=== PATIENT | female | born 1980 | race Caucasian/White ===

== ENCOUNTER → 2017-01-07 | Outpatient (CLI) | payer OTHER ==
[~2017-01-07] MED LIST: MTR600X PO; OXYC5TAB PO; PRENTAB26 PO; VITAMIN D PO
--- NOTE | 2017-01-07 11:14 | DIAGNOSTIC IMAGING REPORT ---
SI JOINTS 3 OR MORE VIEWS CLINICAL HISTORY: Right SI joint pain COMPARISON STUDY: No previous studies for comparison. FINDINGS: No fractures are visualized. There is no evidence of SI joint fusion. There are no erosive changes. IMPRESSION: Unremarkable conventional radiographic evaluation of the sacroiliac joints Electronically signed by: Shravan Hinds M.D. 01/07/2017 11:13 AM Dictated Date/Time: 01/07/2017 11:12 AM
== END | disposition home or self-care (01) ==
LOC: C.RAD 10:26
PROVIDERS: ATTEND Nurse Practitioner Family
DX: M53.3 Sacrococcygeal disorders, not elsewhere classified (principal)

== ENCOUNTER → 2017-01-18 | Outpatient (CLI) | payer OTHER ==
--- NOTE | 2017-01-18 08:30 | DIAGNOSTIC IMAGING REPORT ---
SI JOINTS 3 OR MORE VIEWS CLINICAL HISTORY: Abnormal x-ray. Follow-up examination. COMPARISON STUDY: 01/07/2017. FINDINGS: No fractures are visualized. There is no evidence of SI joint fusion. There are no erosive changes. IMPRESSION: Unremarkable conventional radiographic evaluation of the sacroiliac joints. Electronically signed by: Shravan Hinds M.D. 01/18/2017 8:29 AM Dictated Date/Time: 01/18/2017 8:27 AM
== END | disposition home or self-care (01) ==
LOC: C.RAD 07:09
PROVIDERS: ATTEND Nurse Practitioner Family
DX: M53.3 Sacrococcygeal disorders, not elsewhere classified (principal); R93.7 Abnormal findings on diagnostic imaging of other parts of musculoskeletal system

== ENCOUNTER → 2017-04-07 | Outpatient (CLI) | payer OTHER | END | disposition home or self-care (01) | LOC: C.PAPS 12:24 | PROVIDERS: ATTEND Obstetrics & Gynecology | DX: Z12.4 Encounter for screening for malignant neoplasm of cervix (principal); Z80.3 Family history of malignant neoplasm of breast ==

== ENCOUNTER → 2017-05-05 | Outpatient (CLI) | payer OTHER ==
--- NOTE | 2017-05-05 08:25 | DIAGNOSTIC IMAGING REPORT ---
SOFT TISS HEAD/NECK-THYROID CLINICAL HISTORY: 36 years-old Female presenting with THYROID NODULE. TECHNIQUE: Real-time grayscale and color and spectral Doppler ultrasound imaging of the thyroid and base of the neck was performed. COMPARISON: 11/11/2015. FINDINGS: Right lobe: Heterogeneous echotexture. The right lobe of the thyroid measures 1.9 x 4.9 x 1.6 cm. 1 nodule noted: -At the upper pole, there is a 0.5 x 0.4 x 0.4 hypoechoic nodule with peripheral coarse calcification and ill-defined margins. (High suspicion) Left lobe: Heterogeneous echotexture. The left lobe of the thyroid measures 2.1 x 5.7 x 1.5 cm. 2 nodules noted: -Lower pole hypoechoic 0.6 x 0.6 x 0.7 cm nodule with fairly well-defined margins and peripheral coarse calcification. (Intermediate suspicion) -Posterior hypoechoic to anechoic 0.6 x 0.5 x 0.4 cm nodule. This nodule is likely partially cystic, although margins are somewhat ill-defined. (High suspicion) Isthmus: The isthmus measures 3 in thickness. No nodules. IMPRESSION: Multinodular thyroid. No biopsy of the 3 nodules is recommended at this time given their subcentimeter size preliminary thyroid association recommendations. Follow-up imaging is recommended to screen for growth. Electronically signed by: Juan Saeed M.D. 05/05/2017 8:24 AM Dictated Date/Time: 05/05/2017 8:15 AM
[2017-05-05 11:26] LABS: THYROID STIMULATING HORMONE 1.27 uIu/ml (0.300-4.500)
== END | disposition home or self-care (01) ==
LOC: C.ULTRBC 07:48
PROVIDERS: ATTEND Nurse Practitioner Family
DX: E04.1 Nontoxic single thyroid nodule (principal)

== ENCOUNTER → 2017-06-15 | Outpatient (CLI) | payer OTHER ==
[2017-06-15 11:07] LABS: BASO % 0.7 %; BASO ABS # 0.04 K/uL (0-0.2); COMPLETE YES; EOS % 0.9 %; HEMATOCRIT 41.3 % (37-47); IG% 0.2 %; LYMPH % 27.1 %; LYMPH ABS # 1.47 K/uL (1.2-3.4); MEAN CELL VOLUME 86.6 fL (80-100); MEAN CORPUSCULAR HEMOGLOBIN 28.9 pg (25-34); MEAN CORPUSCULAR HGB CONC 33.4 g/dl (32-36); MONO % 9.6 %; NEUT % 61.5 %; PLATELET COUNT 334 K/uL (130-400); RED BLOOD COUNT 4.77 M/uL (4.2-5.4); WHITE BLOOD COUNT 5.43 K/uL (4.8-10.8)
[2017-06-15 11:40] LABS: ALT/SGPT 36 U/L (12-78); AST/SGOT 19 U/L (15-37); BLOOD UREA NITROGEN 10 mg/dl (7-18); BUN/CREATININE RATIO 11.3 (10-20); CALCIUM 9.4 mg/dl (8.5-10.1); CARBON DIOXIDE 26 mmol/L (21-32); CHLORIDE 106 mmol/L (98-107); CREATININE 0.86 mg/dl (0.60-1.20); GLUCOSE 92 mg/dl (70-99); POTASSIUM 3.8 mmol/L (3.5-5.1); SODIUM 139 mmol/L (136-145)
[2017-06-15 11:43] LABS: ALB/GLOB RATIO 1.2 (0.9-2); ALKALINE PHOSPHATASE 120 U/L (45-117)
== END | disposition home or self-care (01) ==
LOC: C.LABBC 09:10
PROVIDERS: ATTEND Nurse Practitioner Family
DX: F32.2 Major depressive disorder, single episode, severe without psychotic features (principal)

== ENCOUNTER → 2018-05-26 | Outpatient (CLI) | payer OTHER | END | disposition home or self-care (01) | LOC: C.PAPS 10:48 | PROVIDERS: ATTEND Obstetrics & Gynecology | DX: Z12.4 Encounter for screening for malignant neoplasm of cervix (principal) ==

== ENCOUNTER → 2018-05-30 | Outpatient (CLI) | payer OTHER ==
--- NOTE | 2018-05-30 12:39 | DIAGNOSTIC IMAGING REPORT ---
ULTRASOUND OF THE THYROID GLAND CLINICAL HISTORY: Thyroid nodule. COMPARISON STUDY: Thyroid ultrasound dated 05/05/2017. TECHNIQUE: Real-time, grayscale, and color flow sonography of the thyroid gland is performed utilizing a high-frequency linear transducer. Images are reviewed in the transverse and longitudinal planes. FINDINGS: Right lobe: The right lobe of the thyroid gland is normal in size and homogeneous in echotexture, measuring 4.9 x 1.4 x 1.7 cm. Scattered tiny colloid cysts are noted. A minimally complex nodule in the upper pole measures 0.6 x 0.3 x 0.4 cm (previously measured 0.5 x 0.4 x 0.4 cm). A hypoechoic nodule in the lower pole measures 0.5 x 0.5 x 0.4 cm (not well visualized previously). Left lobe: The left lobe of the thyroid gland is normal in size and homogeneous in echotexture, measuring 4.7 x 1.3 x 1.8 cm. A dense shadowing calcification in the lower pole measures 0.6 x 0.5 x 0.6 cm (producing measured 0.6 x 0.6 x 0.7 cm). A 4 mm colloid cyst in the interpolar region is unchanged. Additional smaller colloid cysts are observed. Isthmus: The thyroid isthmus is normal in appearance and measures 0.3 cm in AP diameter. IMPRESSION: There are scattered subcentimeter thyroid nodules as above. Continued follow-up in one years time is recommended. Electronically signed by: Anurag Velazco M.D. 05/30/2018 12:38 PM Dictated Date/Time: 05/30/2018 12:34 PM
== END | disposition home or self-care (01) ==
LOC: C.ULTR 11:50
PROVIDERS: ATTEND Nurse Practitioner Family
DX: E04.1 Nontoxic single thyroid nodule (principal)